=== PATIENT | male | born 1985 | race Caucasian/White ===

== ENCOUNTER 2019-06-29 18:07 | Emergency (ER) | payer OTHER ==
--- NOTE | 2019-06-29 19:20 | RAD ---
Radiograph left shoulder 3 views: DATE: 06/29/2019 Time: 6:56 PM HISTORY: 34-year-old male status post acute traumatic injury to left shoulder. FINDINGS: There is anterior-inferior dislocation of the humeral head relative to the glenoid. No obviously disp laced acute fracture is identified. IMPRESSION: Anterior inferior dislocation of the left glenohumeral joint.
[2019-06-29] MEDS ORDERED: PROPOFOL 0 ML ONE ×2 (19:30→19:46)
[2019-06-29] MEDS ORDERED: Morphine 4 MG/ML VIAL ONE (20:16)
[2019-06-29] MEDS ORDERED: PROPOFOL 20 ML ONE ×2 (21:03→21:04)
[2019-06-29] MEDS ORDERED: Succinylcholine Chloride 20 MG/ML 10 ml SYRINGE FS ONE (21:03)
--- NOTE | 2019-06-29 21:51 | OP ---
DATE OF PROCEDURE: 06/29/2019 PREOPERATIVE DIAGNOSIS: Left anterior shoulder dislocation. POSTOPERATIVE DIAGNOSIS: Left anterior shoulder dislocation. PROCEDURE PERFORMED: Closed reduction of left shoulder dislocation. ANESTHESIA: Propofol and succinylcholine. ANESTHESIOLOGIST: BLOOD LOSS: Zero. COMPLICATIONS: None. DRAINS: None. SPECIMEN: None. INDICATIONS FOR PROCEDURE: The patient is a 34-year-old right-hand dominant gentleman, who is currently incarcerated. He reports that earlier this evening, he bent down to adjust his and the shoulder dislocated. The patient reports many dislocations since his initial dislocation in 2010. He has been unable to have this surgically stabilized due to his current incarceration. Today, I discussed with the patient risks and benefits, we decided to proceed with closed reduction in the emergency room. DESCRIPTION OF PROCEDURE: After induction of TIVA anesthesia, a closed reduction maneuver was performed. This was done with just slight lateral traction to disimpact the humeral head from the anterior rim of the glenoid and then the shoulder reduced quite easily. This was found to be quite unstable with easy subluxation with traction and external rotation. The arm was then brought into internal rotation, placed in a sling and patient was woken in the emergency room. He tolerated the procedure well. Job ID: [id number]
--- NOTE | 2019-06-29 22:07 | RAD ---
Radiograph left shoulder 2 views: DATE: 06/29/2019 Time: 9:48 PM HISTORY: 34-year-old male status post acute left shoulder dislocation. Initial encounter first reduction attem pt. COMPARISON: 06/29/2019 6:56 PM FINDINGS: The glenohumeral joint is now located. No fracture identified. IMPRESSION: Successful reduction of acute anterior glenohumeral joint shoulder dislocation.
--- NOTE | 2019-06-30 14:26 | CON ---
DATE OF CONSULTATION: 06/29/2019 REQUESTING PHYSICIAN: Dr. Jude Hampton. BRIEF HISTORY OF PRESENT ILLNESS: Chad is a 34-year-old right-hand dominant gentleman, who presents to the emergency room of [facility] with correctional officers accompanying him. He reports that earlier on June 29, 2019, he bent over to fix his pant leg and his left shoulder dislocated. The patient reports that he has had in excess of 50 such dislocations since 2010. He has not had any surgical procedure performed on this shoulder. He has been unable to reduce the shoulder dislocations himself and as such, is brought to the emergency room now. An attempt was made under propofol sedation by Dr. Hampton to reduce the shoulder. However, this proved to be unsuccessful and as such, Orthopedic consultation requested. PAST MEDICAL HISTORY: Otherwise, healthy. PAST SURGICAL HISTORY: The patient has a prior forearm surgery and then also had craniotomy for trauma to the head. MEDICATIONS: None. ALLERGIES: NONE. SOCIAL HISTORY: The patient currently does not consume alcohol, tobacco, or drugs in the past. He reports that he did drink alcohol and would smoke marijuana on occasions. FAMILY HISTORY: Noncontributory. REVIEW OF SYSTEMS: Denies recent fevers, chills, or sweats. Denies chest pain or shortness of breath. Denies numbness or tingling in this left upper extremity. PHYSICAL EXAMINATION: VITAL SIGNS: The patient is found to have a heart rate of 94, respiratory rate of 20, and blood pressure of 157/111. HEENT: Atraumatic and normocephalic. HEART: Shows a regular rate and rhythm without murmur. LUNGS: Clear to auscultation bilaterally with good breath sounds. Chest wall is nontender. ABDOMEN: Soft and nontender with normal bowel sounds. EXTREMITIES: Remarkable for a left upper extremity with an obvious anterior inferior shoulder dislocation with an obvious sulcus sign as well. The elbow, wrist, and hand appear atraumatic. He has intact sensation in the radial, median, and ulnar distributions. He is wiggling his fingers normally. He does have pain at the shoulder. IMAGING: Three-view x-ray of the left shoulder remarkable for an anterior inferior shoulder dislocation. I do not appreciate any obvious glenoid rim fracture. ASSESSMENT: This is a 34-year-old right-hand dominant prisoner, status post left shoulder dislocation, recurrent. PLAN: Today the shoulder was reduced in the emergency room under IV sedation provided by Dr. Tod Wade. After the shoulder was reduced, a followup x-ray was obtained that showed anatomic alignment of the glenohumeral joint. The patient was placed in a sling. The patient will be discharged back to custodial. He should use the sling for the next 1 to 2 weeks and then he may begin gentle range of motion exercises for the shoulder. I have discussed with the patient that given the multiple times the shoulder has dislocated, he should give very serious consideration to surgical stabilization once he is released from halfway. The patient appears comfortable with our plan. Job ID: [id number]
== END 2019-06-29 22:08 ==
LOC: ERS 18:07
DX: S43.005A Unspecified dislocation of left shoulder joint, initial encounter (principal)
CPT/HCPCS: 96374; 96375; 96376; J2270; J2704